=== PATIENT | male | born 1940 ===

== ENCOUNTER 2017-10-15 19:46 | Emergency (ER) | payer MEDICARE, OTHER ==
--- NOTE | 2017-10-15 20:01 | C.PDOC ---
History Of Present Illness Patient is a 76 y/o male who presents to the ED with a complaint of right lower rib pain s/p tripping and falling. Patient described pain as severe, worsening with movement and inspiration. Denies SOB or sough. Patient has a Hx of HTN, HLD , hyperthyroidism, and MT. Currently takes Plavix. No other physical complaints at this time. 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) Current Symptoms Are (Timing): Still Present Past Medical History Vital Signs: Last Vital Signs Temp 97.9 F 10/15/17 19:54 Pulse 74 10/15/17 20:34 Resp 18 10/15/17 20:34 BP 160/91 H 10/15/17 20:34 Pulse Ox 98 10/15/17 20:34 Family History: States: Unknown Family Hx - Social History Hx Tobacco Use: No Hx Alcohol Use: No Hx Substance Use: No Review Of Systems Gastrointestinal: Negative for: Abdominal Pain Musculoskeletal: Positive for: Back Pain (right sided radiated from ribs) Physical Exam - Physical Exam Appears: Well, Non-toxic, No Acute Distress Skin: Normal Color, Warm, Dry, No Ecchymosis Head: Atraumatic, Normacephalic Oral Mucosa: Moist Chest: Symmetrical Cardiovascular: Rhythm Regular, No Murmur Respiratory: Normal Breath Sounds, No Rales, No Rhonchi, Wheezing Gastrointestinal/Abdominal: Soft, Tenderness (right sided rib pain to palpation) , Other (negative crepitus) ED Course And Treatment Progress Note: Ribs/CXR ordered. Toradol administered. Disposition Doctor Will See Patient In The: Office Counseled Patient/Family Regarding: Studies Performed, Diagnosis, Need For Followup, Rx Given - Disposition Disposition: HOME/ ROUTINE Disposition Time: 21:40 Condition: STABLE Prescriptions: traMADol [Ultram] 50 mg PO TID PRN #20 tab PRN Reason: Pain, Moderate (4-7) Instructions: Rib Fracture (ED) Forms: [employer] (Luxembourger) - Clinical Impression Clinical Impression: Rib fractures - Scribe Statement The provider has reviewed the documentation as recorded by the Scribe Tania Nunez All medical record entries made by the Scribe were at my direction and personally dictated by me. I have reviewed the chart and agree that the record accurately reflects my personal performance of the history, physical exam, medical decision making, and the department course for this patient. I have also personally directed, reviewed, and agree with the discharge instructions and disposition.
[2017-10-15 22:11] VITALS: BP 149/88; PULSE 77; RESP 19; TEMP 97.5; O2SAT 99
--- NOTE | 2017-10-16 11:17 | RAD ---
PROCEDURE: Radiographs of the Chest and Right Ribs. HISTORY: Trauma COMPARISON: None available. TECHNIQUE: Frontal radiograph of the chest and multiple oblique radiographs of the right ribs were obtained. FINDINGS: RIGHT RIBS: There is an acute displaced fracture in the right posterior 10th and 11th ribs and mildly displaced fracture in the right lateral 10th rib. LUNGS: The lungs are well inflated. There are chronic changes in the lungs. No focal consolidation. PLEURA: No pneumothorax or pleural fluid. CARDIOVASCULAR: Normal sized heart. No pulmonary vascular congestion. OTHER FINDINGS: None. IMPRESSION: 1. Acute mildly displaced fractures in the right posterior 10th and 11th ribs and acute mildly displaced fracture in the right lateral 10th rib. 2. No pneumothorax or pleural effusion.
== END 2017-10-15 22:25 | disposition home or self-care (01) ==
LOC: C.ER 19:46
DX: S22.41XA Multiple fractures of ribs, right side, initial encounter for closed fracture (principal); W01.0XXA Fall on same level from slipping, tripping and stumbling without subsequent striking against object, initial encounter; E78.5 Hyperlipidemia, unspecified; I10 Essential (primary) hypertension; Z79.02 Long term (current) use of antithrombotics/antiplatelets
CPT/HCPCS: 71101; 96374; 99285; J1885

== ENCOUNTER 2017-12-29 09:27 | Emergency (ER) | payer MEDICARE, OTHER ==
--- NOTE | 2017-12-29 10:26 | C.PDOC ---
History Of Present Illness Neftaly Cotton is a 77 year old male, with no significant past medical history , who was brought to the emergency department by his son for difficulty urinating onset for x1 week. Patient states he has to strain and urine dribbles out, last urination was at 6:00am prior to arrival. Patient is currently taking Flomax and has been seen previously by Dr. Pinto for similar symptoms. He denies any fever, chills, abdominal pain, flank pain, dysuria, or hematuria. No further medical complaints. PMD: Pedro Pablo Jimenes Time Seen by Provider: 12/29/17 09:43 Chief Complaint (Nursing): Male Genitourinary History Per: Patient History/Exam Limitations: no limitations Onset/Duration Of Symptoms: Days (x1 week. ) Current Symptoms Are (Timing): Still Present Associated Symptoms: denies: Fever, Chills, Back Pain (flank pain), Urinary Symptoms, Other (abdominal pain) Past Medical History Reviewed: Historical Data, Nursing Documentation, Vital Signs Vital Signs: Last Vital Signs Temp 98.3 F 12/29/17 11:44 Pulse 73 12/29/17 11:44 Resp 20 12/29/17 11:44 BP 146/96 H 12/29/17 11:44 Pulse Ox 98 12/29/17 15:57 - Medical History PMH: HTN, Hypercholesterolemia, Hypothyroidism Surgical History: Coronary Stent Family History: States: Unknown Family Hx - Social History Hx Tobacco Use: No Hx Alcohol Use: Yes Hx Substance Use: No - Immunization History Hx Tetanus Toxoid Vaccination: No Hx Influenza Vaccination: Yes Hx Pneumococcal Vaccination: No Review Of Systems Genitourinary: Positive for: Incontinence Physical Exam - Physical Exam Appears: Other (comfortable) Skin: Normal Color, Warm, Dry Head: Atraumatic, Normacephalic Eye(s): bilateral: Normal Inspection, PERRL, EOMI Neck: Normal ROM Cardiovascular: Rhythm Regular Respiratory: Normal Breath Sounds, No Wheezing Gastrointestinal/Abdominal: Normal Exam, Soft, No Tenderness Back: Normal Inspection, No CVA Tenderness Extremity: Normal ROM, No Deformity, No Swelling Neurological/Psych: Oriented x3 ED Course And Treatment - Laboratory Results Result Diagrams: 12/29/17 10:37 12/29/17 10:37 O2 Sat by Pulse Oximetry: 98 (RA) Pulse Ox Interpretation: Normal Progress Note: Initial Impression: Urinary retention. Initial Plan: CMP, CBC w / differential, Colace 100 mg PO, Urine culture, Bladder scan, Urinalysis. - Bladder scan done by nurse, only had 50 ml in the bladder and was able to urinate here. -Blood work came back normal. --Explained diagnosis to patient and advised to follow up with an urologist. Disposition Counseled Patient/Family Regarding: Studies Performed, Diagnosis, Need For Followup, Rx Given - Disposition Referrals: Pedro Pablo Jimenes MD [Medical Doctor] - Viry Pinto MD [Staff Provider] - Patrick Pinto MD [Staff Provider] - Disposition: HOME/ ROUTINE Disposition Time: 11:20 Condition: STABLE Additional Instructions: CONTINUE FLOMAX DAILY FOLLOW UP WITH UROLOGY IN 1-2 DAYS USE MEDICATIONS FOR CONSTIPATION NEEDED DRINK PLENTY OF FLUIDS AND INCREASE FIBER IN YOUR DIET RETURN TO ER IF SYMPTOMS WORSEN Prescriptions: Docusate [Colace] 100 mg PO DAILY #30 cap Magnesium Citrate [Citrate of Mag] 300 ml PO ONCE PRN #1 bottle PRN Reason: Constipation Instructions: Constipation in Adults, High Fiber Diet, Urinary Retention (DC) Forms: [email or web address] (Bahamian) Print Language: AUSTRIAN - Clinical Impression Clinical Impression: Urinary dribbling, Constipation - Scribe Statement José Chase
[2017-12-29 10:43] LABS: URINE BILIRUBIN NEGATIVE (NEGATIVE); URINE BLOOD 1+ (NEGATIVE); URINE CLARITY Clear (Clear); URINE COLOR Straw (YELLOW); URINE GLUCOSE (UA) NORMAL (Normal); URINE LEUKOCYTE ESTERASE NEG Leu/uL (Negative); URINE PROTEIN NEGATIVE (NEGATIVE); URINE UROBILINOGEN NORMAL mg/dL (0.2-1.0)
[2017-12-29 10:43] LABS: BASO # 0.1 K/uL (0.0-0.2); BASO % 1.3 % (0.0-2.0); EOS # 0.6 K/uL (0.0-0.7); EOS % 12.5 % (0.0-4.0); HEMOGLOBIN 14.7 g/dL (12.0-18.0); LYMPH # 1.3 K/uL (1.0-4.3); LYMPH % 28.7 % (20.0-40.0); MEAN CELL VOLUME 88.8 fL (80.0-94.0); MEAN CORPUSCULAR HEMOGLOBIN 31.3 pg (27.0-31.0); MEAN CORPUSCULAR HGB CONC 35.2 g/dL (33.0-37.0); MEAN PLATELET VOLUME 7.1 fL (7.2-11.7); MONO # 0.4 K/uL (0.0-0.8); MONO % 9.3 % (0.0-10.0); NEUT # 2.3 K/uL (1.8-7.0); NEUT % 48.2 % (50.0-75.0); NRBC % 0.1 % (0.0-2.0); RBC 4.69 Mil/uL (4.40-5.90); RED CELL DISTRIBUTION WIDTH 14.1 % (11.5-14.5); WHITE BLOOD COUNT 4.7 K/uL (4.8-10.8)
[2017-12-29 10:57] LABS: ALB/GLOB RATIO 0.9 (1.0-2.1); ALBUMIN 4.1 g/dL (3.5-5.0); ALT/SGPT 24 U/L (21-72); AST/SGOT 37 U/L (17-59); CALCIUM 9.4 mg/dl (8.6-10.4); GFR AFRICAN-AMERICAN > 60; GFR NON-AFRICAN AMERICAN > 60
[2017-12-29 11:11] LABS: BLOOD UREA NITROGEN 8 mg/dL (9-20)
[2017-12-29 11:45] VITALS: BP 146/96; PULSE 73; RESP 20; TEMP 98.3
[2017-12-29 15:48] VITALS: O2SAT 98
== END 2017-12-29 11:44 | disposition home or self-care (01) ==
LOC: C.ER 09:27
DX: N39.43 Post-void dribbling (principal); K59.00 Constipation, unspecified; I10 Essential (primary) hypertension; E78.00 Pure hypercholesterolemia, unspecified; Z87.891 Personal history of nicotine dependence